=== PATIENT | female | born 1960 | race Caucasian/White ===

== ENCOUNTER → 2018-05-26 18:51 | Outpatient (CLI) | payer OTHER, SELFPAY ==
[2018-05-26 20:21] LABS: Appearance Urine UA CLOUDY; Bilirubin Urine UA NEGATIVE (NEGATIVE); Color Urine UA YELLOW; Glucose Urine UA NEGATIVE (Negative); Ketones Urine UA NEGATIVE (NEGATIVE); Leukocyte Esterase Urine UA 3+ (NEGATIVE); Nitrite Urine UA NEGATIVE (Negative); Occult Blood Urine UA 1+ (Negative); Protein Urine UA 1+ (Negative); Specific Gravity Urine UA 1.015 (1.000-1.035); Urobilinogen Urine UA 0.2 E.U./dL (0.2)
[2018-05-26 20:27] LABS: Bacteria Urine Moderate (10-30); RBC Urine 1-5/HPF (0-5/HPF); Squamous Epithelial Cell Urine 0-1 /HPF; WBC Urine >100/HPF (0-5/HPF)
[2018-05-26 20:28] LABS: Culture Indicated Urine Specimen Cultured
[2018-05-26 20:38] LABS: Urine N gonorrhoeae NOT DETECTED
[2018-05-26 20:43] LABS: Urine Chlamydia NOT DETECTED
== END ==
PROVIDERS: Visit Provider Physician Assistant
DX: N89.8 Other specified noninflammatory disorders of vagina (principal); R30.0 Dysuria
CPT/HCPCS: 81001; 87077; 87086; 87147; 87210; 87491; 87591

== ENCOUNTER → 2018-11-25 16:07 | Outpatient (CLI) | payer OTHER, SELFPAY ==
[2018-11-25 18:10] LABS: Urine N gonorrhoeae NOT DETECTED
[2018-11-25 18:13] LABS: Urine Chlamydia NOT DETECTED
== END ==
PROVIDERS: Visit Provider Physician Assistant
DX: N89.8 Other specified noninflammatory disorders of vagina (principal); Z20.2 Contact with and (suspected) exposure to infections with a predominantly sexual mode of transmission
CPT/HCPCS: 87210; 87491; 87591